=== PATIENT | female | born 1965 | race Caucasian/White ===

== ENCOUNTER → 2018-04-08 | Outpatient (CLI) | payer OTHER ==
[2018-04-08 08:14] VITALS: BP 137/97; PULSE 80; TEMP 97.7; BMI 38.7
--- NOTE | 2018-04-08 08:43 | P.HPOB ---
History of Present Illness H&P Date: 04/08/18 Chief Complaint: The patient is here for her routine gynecologic exam and mammogram. This is a 53-year-old with an LMP of 2015. The patient is without gynecologic complaints and denies any postmenopausal bleeding. Review of Systems The patient has gained 28 pounds over the last year. This was after losing 17 pounds the previous year. Most recently, she states she has lost about 12 pounds on Weight Watchers. She attributes the gain over the last year to extensive traveling and change in her eating habits during her travels. She denies respiratory, cardiac, or G.I. problems. Past Medical History Past Medical History: Diabetes Mellitus (Type II diabetes), Hyperlipidemia, Hypertension Additional Past Medical History / Comment(s): Vitamin D deficiency. 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 - Past Family History Brother(s) Family Medical History: Cancer (Testicular cancer) Father Family Medical History: Myocardial Infarction ([place]) Mother Family Medical History: Diabetes Mellitus Medications and Allergies Home Medications Medication Instructions Recorded Confirmed Type Ibuprofen [Motrin] 800 mg PO Q6H PRN 12/20/15 04/08/18 History Liraglutide [Victoza 2-Joshua] 1.2 mg SQ HS 12/20/15 04/08/18 History Moexipril/Hydrochlorothiazide 1 tab PO DAILY 12/20/15 04/08/18 History [Uniretic 15-25 mg Tablet] metFORMIN HCL [Glucophage Xr] 500 mg PO PC-SUPPER 12/20/15 04/08/18 History Cholecalciferol (Vitamin D3) 5,000 units PO DAILY 07/05/16 04/08/18 History [Vitamin D3] L.acidoph,Paracasei, B.lactis 1 cap PO DAILY 07/05/16 04/08/18 History [Probiotic] Magnesium 250 mg PO DAILY 07/05/16 04/08/18 History Turmeric Root Extract [Turmeric] 450 mg PO DAILY 07/05/16 04/08/18 History Ubidecarenone [Co Q-10] 400 mg PO DAILY 07/05/16 04/08/18 History Pravastatin Sodium [Pravachol] 40 mg PO DAILY 04/08/18 04/08/18 History Allergies Allergy/AdvReac Type Severity Reaction Status Date / Time steroids Allergy Unknown Rapid Uncoded 04/08/18 08:07 Heart Rate Exam Vital Signs Temp Pulse BP 04/08/18 08:11 97.7 F 80 137/97 Intake and Output 04/07/18 04/08/18 04/08/18 22:59 06:59 14:59 Other: Weight 118.841 kg Height 5'9", weight 262 pounds, BMI 38.7. This is a well-developed well-nourished heavyset white female who is alert and oriented times 3 in no acute distress. HEENT: Within normal limits. NECK: Supple without mass or thyromegaly. CHEST AND LUNGS: Clear to auscultation. HEART: Regular rate and rhythm. BREASTS: Are without mass or discharge. AXILLARY EXAM: Negative for adenopathy. BACK: Negative for CVA tenderness. ABDOMEN: Soft, obese, nontender, without palpable masses. PELVIC EXAM: Normal external genitalia. Cervix and vagina appear normal. There is no unusual discharge. There is no evidence of prolapse. The uterus is midposition, nongravid size and nontender. There are no palpable adnexal masses or tenderness. Bimanual examination is somewhat limited secondary to her size. RECTAL EXAM: rectovaginal exam is negative for mass or tenderness and is negative for occult blood. EXTREMITIES: Nontender. IMPRESSION: 1. 53-year-old menopausal female with normal gynecologic exam. PLAN: 1. Pap smear was performed. 2. Self breast awareness was discussed with the patient. 3. Screening mammogram will be done today. 4. Osteoporosis prevention was discussed. I have stressed the importance of adequate calcium, vitamin D and regular exercise. Recommended amounts of calcium and vitamin D were also discussed. 5. We have discussed her blood pressure elevation today. She states she will take her blood pressure at home on a regular basis and follow-up with Dr. Hsieh for blood pressure elevations. 6. I have recommended screening colonoscopy again. She states she will speak with Dr. Hsieh about this and do this through his office. 7. She will return in one year.
--- NOTE | 2018-04-12 10:36 | MM ---
Reason for exam: screening (asymptomatic). Last mammogram was performed 1 year and 3 months ago. History: Took hormonal contraceptives for 6 years beginning at age 19. MG 3D Screening Mammo W/Cad Bilateral CC and MLO view(s) were taken. XCCL view(s) were taken of the left breast. Prior study comparison: January 15, 2017, bilateral MG 3d diag mammo w/cad DELTA. January 19, 2016, right breast MG 3d work up w/cad RT. There are scattered fibroglandular densities. There are benign-appearing round bilateral breast calcifications, right more than left. There is chronic nodularity in the left breast. No discrete abnormality. ASSESSMENT: Benign, BI-RAD 2 RECOMMENDATION: Routine screening mammogram of both breasts in 1 year.
== END ==
LOC: WWCWWP 07:55
PROVIDERS: ATTEND Obstetrics & Gynecology
DX: Z12.31 Encounter for screening mammogram for malignant neoplasm of breast (principal)
CPT/HCPCS: 77063; 77067

== ENCOUNTER → 2023-04-02 | Outpatient (CLI) | payer BC ==
[2023-04-02 13:04] VITALS: BP 138/82; PULSE 81; RESP 16; TEMP 98.9
--- NOTE | 2023-04-02 13:22 | P.HPOB ---
History of Present Illness H&P Date: 04/02/23 Chief Complaint: The patient is here for her routine gynecologic exam and ma mmogram. This is a 58-year-old with an LMP of 2014. It has been about 4 years since her last pelvic exam here. She states she has been experiencing some vaginal dryness with sexual intercourse and she has started to use a lubricant which has been helpful. She is otherwise without gynecologic complaints and denies any postmenopausal bleeding. Review of Systems She has gained about 12 pounds over the past 4 years. She denies respiratory, cardiac, or GI problems. Past Medical History Past Medical History: Diabetes Mellitus, Hyperlipidemia, Hypertension Additional Past Medical History / Comment(s): Vitamin D deficiency. 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 Colonoscopy approximately 2020. Past Psychological History: No Psychological Hx Reported Smoking Status: Never smoker Past Alcohol Use History: Rare (10 drinks per year. 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 - Past Family History Brother(s) Family Medical History: Cancer Father Family Medical History: Myocardial Infarction ([place]) Mother Family Medical History: Dementia, Diabetes Mellitus Medications and Allergies Home Medications Medication Instructions Recorded Confirmed Type Moexipril/Hydrochlorothiazide 1 tab PO DAILY 12/20/15 04/02/23 History [Uniretic 15-25 mg Tablet] metFORMIN HCL [Glucophage Xr] 500 mg PO PC-SUPPER 12/20/15 04/02/23 History Cholecalciferol (Vitamin D3) 5,000 units PO DAILY 07/05/16 04/02/23 History [Vitamin D3] Magnesium 250 mg PO DAILY 07/05/16 04/02/23 History Turmeric Root Extract [Turmeric] 450 mg PO DAILY 07/05/16 04/02/23 History Ubidecarenone [Co Q-10] 400 mg PO DAILY 07/05/16 04/02/23 History Pravastatin Sodium [Pravachol] 40 mg PO DAILY 04/08/18 04/02/23 History Dulaglutide [Trulicity] 3 mg INJ WEEKLY 04/02/23 04/02/23 History Allergies Allergy/AdvReac Type Severity Reaction Status Date / Time ciprofloxacin [From Cipro] Allergy Hallucinati Unverified 04/02/23 12:44 ons steroids Allergy Unknown Rapid Uncoded 04/02/23 12:44 Heart Rate Exam Vital Signs Temp Pulse Resp BP Pulse Ox 04/02/23 12:48 98.9 F 81 16 138/82 99 Intake and Output 04/01/23 04/02/23 04/02/23 22:59 06:59 14:59 Other: Weight 124.284 kg Height 5 feet 9 inches, weight 274 pounds, BMI 40.5. This is a well-developed well-nourished heavyset white female who is alert and oriented times 3 in no acute distress. HEENT: Within normal limits. NECK: Supple without mass or thyromegaly. CHEST AND LUNGS: Clear to auscultation. HEART: Regular rate and rhythm. BREASTS: Are without mass or discharge. AXILLARY EXAM: Negative for adenopathy. BACK: Negative for CVA tenderness. ABDOMEN: Soft, obese, nontender, without palpable masses. PELVIC EXAM: Normal external genitalia with mild atrophy. Cervix and vagina appe ar normal with minimal atrophy. There is no unusual discharge. There is no evidence of prolapse. The uterus is midposition, nongravid size and nontender. There are no palpable adnexal masses or tenderness. RECTAL EXAM: Rectovaginal exam is negative for mass or tenderness and is negative for occult blood. EXTREMITIES: Nontender. IMPRESSION: 1. 58-year-old menopausal female with normal gynecologic exam. PLAN: 1. Pap smear cotest was performed. 2. Self breast awareness was discussed with the patient. We have also discussed symptoms associated with inflammatory breast cancer. 3. Screening mammogram will be done today. 4. Osteoporosis prevention was discussed. I have stressed the importance of adequate calcium, vitamin D and regular exercise. Recommended amounts of calcium and vitamin D were also discussed. 5. She was advised to return in one year for her annual well woman exam.
--- NOTE | 2023-04-03 17:56 | MM ---
Reason for Exam: Screening (asymptomatic). Last mammogram was performed 5 year(s) and 0 month(s) ago. Patient History: Menarche at age 15. First Full-Term at age 23. Postmenopausal. Hormonal Contraceptives, starting at age 19 for 6 years. Risk Values: Celeste 5 year model risk: 1.1%. NCI Lifetime model risk: 6.2%. Prior Study Comparison: 01/19/2016 Right Diagnostic Mammogram, [facility]. 01/15/2017 Bilateral Diagnostic Mammogram, [facility]. 04/08/2018 Bilateral Screening Mammogram, [facility]. Tissue Density: There are scattered fibroglandular densities. Findings: Analyzed By CAD. Heart appears symmetrical and stable. No significant interval change is evident. Scattered spherical calcifications are present bilaterally No suspicious groups of microcalcifications, spiculated or lobular masses, architectural distortion or other secondary signs of malignancy are mammographically apparent. Overall Assessment: Benign, BI-RAD 2 Management: Screening Mammogram of both breasts in 1 year. A negative mammogram report should not preclude additional follow up of suspicious palpable abnormalities. Patient should continue monthly self breast exam. A clinical breast exam by your physician is recommended on an annual basis and results should be correlated with mammographic findings. Electronically signed and approved by: Faisal Miller D.O. Radiologis
== END ==
LOC: WWCWWP 12:26
PROVIDERS: ATTEND Obstetrics & Gynecology
DX: Z12.31 Encounter for screening mammogram for malignant neoplasm of breast (principal); E11.9 Type 2 diabetes mellitus without complications; E78.5 Hyperlipidemia, unspecified; I10 Essential (primary) hypertension; Z79.84 Long term (current) use of oral hypoglycemic drugs; Z79.85 Long-term (current) use of injectable non-insulin antidiabetic drugs; Z88.1 Allergy status to other antibiotic agents; Z78.0 Asymptomatic menopausal state; Z88.8 Allergy status to other drugs, medicaments and biological substances; Z79.899 Other long term (current) drug therapy
CPT/HCPCS: 77063; 77067

== ENCOUNTER 2023-10-26 12:15 | Observation (INO) | payer BC ==
--- NOTE | 2023-10-26 12:57 | ED ---
General Adult HPI - General Chief complaint: Chest Pain Stated complaint: Chest pain Time Seen by Provider: 10/26/23 12:25 Source: patient, RN notes reviewed Mode of arrival: ambulatory Limitations: no limitations - History of Present Illness Initial comments: Patient is a 58-year-old female present to the emergency department with concerns with chest discomfort. Symptoms have been occurring over the past week or so. Discomfort is very mild at this time. Patient has a twinge followed by ache in her chest. Symptoms have been mild. Patient has noticed some worsening of symptoms with exertion. Patient did have a couple episodes of exertional dy spnea with steps. Patient recently lost her mother. Patient has been stressed and anxious. No nausea or diaphoresis. No history of similar symptoms previously. Patient does have hypertension history, diabetes and hypercholesterolemia - Related Data Home Medications Medication Instructions Recorded Confirmed Pravastatin Sodium [Pravachol] 40 mg PO DAILY 04/08/18 10/26/23 Dulaglutide [Trulicity] 3 mg SQ EVANGELISTA 04/02/23 10/26/23 Insulin Degludec [Tresiba 30 units SQ HS 10/26/23 10/26/23 Flextouch U-200 Pen] Moexipril HCl [Univasc] 15 mg PO DAILY 10/26/23 10/26/23 Pioglitazone [Actos] 15 mg PO DAILY 10/26/23 10/26/23 hydroCHLOROthiazide [Hydrodiuril] 25 mg PO DAILY 10/26/23 10/26/23 metFORMIN HCL ER [Glucophage XR] 1,000 mg PO W/SUPPER 10/26/23 10/26/23 Allergies Allergy/AdvReac Type Severity Reaction Status Date / Time ciprofloxacin [From Cipro] Allergy Hallucinati Verified 10/26/23 13:56 ons steroids Allergy Unknown Rapid Uncoded 10/26/23 12:24 Heart Rate Review of Systems ROS Statement: Those systems with pertinent positive or pertinent negative responses have been documented in the HPI. ROS Other: All systems not noted in ROS Statement are negative. Constitutional: Denies: fever Eyes: Denies: eye pain ENT: Denies: ear pain Respiratory: Reports: as per HPI. Denies: cough Cardiovascular: Reports: as per HPI, chest pain, dyspnea on exertion Endocrine: Denies: fatigue Gastrointestinal: Denies: abdominal pain Musculoskeletal: Denies: back pain Neurological: Reports: paresthesias Psychiatric: Reports: anxiety Past Medical History Past Medical History: Diabetes Mellitus, Hyperlipidemia, Hypertension Additional Past Medical History / Comment(s): Vitamin D deficiency. 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 Colonoscopy approximately 2020. Past Psychological History: No Psychological Hx Reported Smoking Status: Never smoker Past Alcohol Use History: Occasional Past Drug Use History: None Reported - Past Family History Brother(s) Family Medical History: Cancer Father Family Medical History: Myocardial Infarction ([place]) Mother Family Medical History: Dementia, Diabetes Mellitus General Exam Limitations: no limitations General appearance: alert, in no apparent distress Head exam: Present: atraumatic Eye exam: Present: normal appearance Neck exam: Present: normal inspection Respiratory exam: Present: normal lung sounds bilaterally Cardiovascular Exam: Present: regular rate, normal rhythm, normal heart sounds Expanded Peripheral pulses: 2+: Radial (R), Radial (L), Posterior Tibialis (R), Posterior Tibialis (L) GI/Abdominal exam: Present: soft. Absent: tenderness Extremities exam: Present: normal inspection. Absent: pedal edema, calf ten derness Neurological exam: Present: alert Psychiatric exam: Present: normal affect, normal mood Skin exam: Present: normal color Course Vital Signs 10/26/23 12:21 Temperature 98.3 F Pulse Rate 80 Respiratory 20 Rate Blood Pressure 146/76 O2 Sat by Pulse 98 Oximetry EKG Findings - EKG Results: EKG: interpreted by ERMD (LVH criteria), sinus rhythm, normal axis, normal ST/T Medical Decision Making - Medical Decision Making Was pt. sent in by a medical professional or institution (, PA, MAINTENANCE DEPARTMENT MANAGER, urgent care, hospital, or custodial...) When possible be specific @ -Patient was sent in by urgent care Did you speak to anyone other than the patient for history (EMS, parent, family, police, friend...)? What history was obtained from this source @ - is present and helps provide history of patient's symptoms Did you review nursing and triage notes (agree or disagree)? Why? @ -I reviewed and agree with nursing and triage notes Were old charts reviewed (outside hosp., previous admission, EMS record, old EKG, old radiological studies, urgent care reports/EKG's, custodial records)? Report findings @ -No old charts were reviewed Differential Diagnosis (chest pain, altered mental status, abdominal pain women, abdominal pain men, vaginal bleeding, weakness, fever, dyspnea, syncope, headache, dizziness, GI bleed, back pain, seizure, CVA, palpatations, mental health, musculoskeletal)? @ -Differential Chest Pain: Stable Angina, Unstable Angina, STEMI, NSTEMI Aortic Dissection, Pneumothorax, Musculoskeletal, Esophageal Spasm GERD, Cholecystitis, Pancreatitis, Zoster, this is not meant to be an all-inclusive list. EKG interpreted by me (3pts min.). @ -As above X-rays interpreted by me (1pt min.). @ -Chest x-ray does show some nodule CT interpreted by me (1pt min.). @ -None done U/S interpreted by me (1pt. min.). @ -None done What testing was considered but not performed or refused? (CT, X-rays, U/S, lab s)? Why? @ -None What meds were considered but not given or refused? Why? @ -None Did you discuss the management of the patient with other professionals (professionals i.e. , PA, MAINTENANCE DEPARTMENT MANAGER, lab, RT, psych nurse, social media assistant, agricultural commodities grader, teacher, contract officer, lining caser)? Give summary @ -[facility] Dr. Rhianna Cortez who will admit covering call Dr. Castro, admits for Dr. Hsieh. Was smoking cessation discussed for >3mins.? @ -No Was critical care preformed (if so, how long)? @ -No Were there social determinants of health that impacted care today? How? (Homelessness, low income, unemployed, alcoholism, drug addiction, transportation, low edu. Level, literacy, decrease access to med. care, senior living, rehab)? @ -No Was there de-escalation of care discussed even if they declined (Discuss DNR or withdrawal of care, Hospice)? DNR status @ -No What co-morbidities impacted this encounter? (DM, HTN, Smoking, COPD, CAD, Cancer, CVA, ARF, Chemo, Hep., AIDS, mental health diagnosis, sleep apnea, morbid obesity)? @ -Hypertension, diabetes, hypercholesterolemia Was patient admitted / discharged? Hospital course, mention meds given and route, prescriptions, significant lab abnormalities, going to OR and other pertinent info. @ -Patient is a 58-year-old female present to the emergency department chest di [place], ongoing for over a week. Patient has some exertional dyspnea and several risk factors. Patient will be admitted with cardiac consult. Admission orders written. Undiagnosed new problem with uncertain prognosis? @ -No Drug Therapy requiring intensive monitoring for toxicity (Heparin, Nitro, Insulin, Cardizem)? @ -No Were any procedures done? @ -No Diagnosis/symptom? @ -Chest pain Acute, or Chronic, or Acute on Chronic? @ -Acute Uncomplicated (without systemic symptoms) or Complicated (systemic symptoms)? @ -Default Side effects of treatment? @ -No Exacerbation, Progression, or Severe Exacerbation? @ -No Poses a threat to life or bodily function? How? (Chest pain, [place], [place], pneumonia, PE, COPD, DKA, ARF, appy, cholecystitis, CVA, Diverticulitis, Homicidal, Suicidal, threat to staff... and all critical care pts) @ -Threat to cardiac function - Lab Data Result diagrams: 10/26/23 13:19 10/26/23 13:19 Lab Results 10/26/23 10/26/23 10/26/23 Range/Units 13:19 13:19 13:19 WBC 9.9 (3.8-10.6) k/uL RBC 4.43 (3.80-5.40) m/uL Hgb 13.3 (11.4-16.0) gm/dL Hct 39.6 (34.0-46.0) % MCV 89.5 (80.0-100.0) fL MCH 30.0 (25.0-35.0) pg MCHC 33.6 (31.0-37.0) g/dL RDW 12.9 (11.5-15.5) % Plt Count 349 (150-450) k/uL MPV 7.4 Neutrophils % 71 % Lymphocytes % 21 % Monocytes % 6 % Eosinophils % 2 % Basophils % 0 % Neutrophils # 7.0 (1.3-7.7) k/uL Lymphocytes # 2.0 (1.0-4.8) k/uL Monocytes # 0.6 (0-1.0) k/uL Eosinophils # 0.2 (0-0.7) k/uL Basophils # 0.0 (0-0.2) k/uL PT 10.3 (10.0-12.5) sec INR 0.9 (<1.2) APTT 22.9 (22.0-30.0) sec D-Dimer 0.32 (<0.60) mg/L FEU Sodium 139 (137-145) mmol/L Potassium 3.9 (3.5-5.1) mmol/L Chloride 103 (98-107) mmol/L Carbon Dioxide 25 (22-30) mmol/L Anion Gap 11 mmol/L BUN 19 H (7-17) mg/dL Creatinine 0.51 L (0.52-1.04) mg/dL Est GFR (CKD-EPI)AfAm >90 (>60 ml/min/1.73 sqM) Est GFR (CKD-EPI)NonAf >90 (>60 ml/min/1.73 sqM) Glucose 184 H (74-99) mg/dL Calcium 10.2 (8.4-10.2) mg/dL Magnesium 1.2 L (1.6-2.3) mg/dL Total Bilirubin 0.5 (0.2-1.3) mg/dL AST 26 (14-36) U/L ALT 26 (4-34) U/L Alkaline Phosphatase 65 (38-126) U/L Troponin I (0.000-0.034) ng/mL Total Protein 7.1 (6.3-8.2) g/dL Albumin 4.4 (3.5-5.0) g/dL 10/26/23 Range/Units 13:19 WBC (3.8-10.6) k/uL RBC (3.80-5.40) m/uL Hgb (11.4-16.0) gm/dL Hct (34.0-46.0) % MCV (80.0-100.0) fL MCH (25.0-35.0) pg MCHC (31.0-37.0) g/dL RDW (11.5-15.5) % Plt Count (150-450) k/uL MPV Neutrophils % % Lymphocytes % % Monocytes % % Eosinophils % % Basophils % % Neutrophils # (1.3-7.7) k/uL Lymphocytes # (1.0-4.8) k/uL Monocytes # (0-1.0) k/uL Eosinophils # (0-0.7) k/uL Basophils # (0-0.2) k/uL PT (10.0-12.5) sec INR (<1.2) APTT (22.0-30.0) sec D-Dimer (<0.60) mg/L FEU Sodium (137-145) mmol/L Potassium (3.5-5.1) mmol/L Chloride (98-107) mmol/L Carbon Dioxide (22-30) mmol/L Anion Gap mmol/L BUN (7-17) mg/dL Creatinine (0.52-1.04) mg/dL Est GFR (CKD-EPI)AfAm (>60 ml/min/1.73 sqM) Est GFR (CKD-EPI)NonAf (>60 ml/min/1.73 sqM) Glucose (74-99) mg/dL Calcium (8.4-10.2) mg/dL Magnesium (1.6-2.3) mg/dL Total Bilirubin (0.2-1.3) mg/dL AST (14-36) U/L ALT (4-34) U/L Alkaline Phosphatase (38-126) U/L Troponin I <0.012 (0.000-0.034) ng/mL Total Protein (6.3-8.2) g/dL Albumin (3.5-5.0) g/dL Disposition Clinical Impression: Chest pain Disposition: ADMITTED IP TO THIS [facility] Is patient prescribed a controlled substance at d/c from ED?: No Time of Disposition: 14:28
[2023-10-26] MEDS: ASPIRIN 81 MG PO STA (13:05)
[2023-10-26] MEDS: NITROGLYCERIN OINT 1 INCH/GM PACKET TOPICAL STA (13:06)
[2023-10-26 13:28] LABS: Basophils % (A) 0 %; Eosinophils # (A) 0.2 k/uL (0-0.7); Eosinophils % (A) 2 %; HCT 39.6 % (34.0-46.0); HGB 13.3 gm/dL (11.4-16.0); Lymphocytes % (A) 21 %; MCHC 33.6 g/dL (31.0-37.0); MCV 89.5 fL (80.0-100.0); Mean Platelet Volume 7.4; Monocytes # (A) 0.6 k/uL (0-1.0); Monocytes % (A) 6 %; Neutrophils % (A) 71 %; Platelet Count 349 k/uL (150-450); RBC 4.43 m/uL (3.80-5.40); RDW 12.9 % (11.5-15.5); WBC 9.9 k/uL (3.8-10.6)
--- NOTE | 2023-10-26 13:36 | XR ---
EXAMINATION TYPE: XR chest 2V DATE OF EXAM: 10/26/2023 COMPARISON: None HISTORY: 58-year-old female with chest pain TECHNIQUE: PA and lateral views FINDINGS: Low lung volumes and crowded vascular markings. Right suprahilar and left hilar dominant. Possible no dule right upper lobe measuring 9 mm. Interstitial density. No bruce consolidation or pleural effusio n seen. IMPRESSION: 1. Interstitial prominence could reflect bronchitis or asthma. There are hypoventilatory changes pres ent. 2. Possible 9 mm right upper lobe nodule. Additional asymmetric right suprahilar and left hilar promi nence. Nonemergent follow-up CT chest to exclude underlying adenopathy or suspicious nodules.
[2023-10-26 13:39] LABS: ALT 26 U/L (4-34); AST 26 U/L (14-36); African American GFR (CKD) >90 (>60 ml/min/1.73 sqM); Albumin 4.4 g/dL (3.5-5.0); Alkaline Phosphatase 65 U/L (38-126); Anion Gap 11 mmol/L; Blood Urea Nitrogen 19 mg/dL (7-17); Calcium 10.2 mg/dL (8.4-10.2); Carbon Dioxide 25 mmol/L (22-30); Chloride 103 mmol/L (98-107); Glucose 184 mg/dL (74-99); Magnesium 1.2 mg/dL (1.6-2.3); Non-African American GFR(CKD) >90 (>60 ml/min/1.73 sqM); Potassium 3.9 mmol/L (3.5-5.1); Sodium 139 mmol/L (137-145); Total Bilirubin 0.5 mg/dL (0.2-1.3); Total Protein 7.1 g/dL (6.3-8.2)
[2023-10-26 13:41] LABS: INR 0.9 (<1.2); Partial Thromboplastin Time 22.9 sec (22.0-30.0); Prothrombin Time 10.3 sec (10.0-12.5)
[2023-10-26] MEDS: MAGNESIUM SULFATE-D5W PMX 1 GM in DEXTROSE/WATER 1 100ML.BAG IVPB SCH (14:26)
[2023-10-26] MEDS ORDERED: NITROGLYCERIN SL TABS 0.4 MG TAB SUBLINGUAL PRN (14:28)
[2023-10-26] MEDS: NITROGLYCERIN OINT 1 INCH/GM PACKET TOPICAL SCH (17:17)
[2023-10-26 17:24] LABS: Glucose,Whole Blood 155 mg/dL (70-110)
[2023-10-26] MEDS: metFORMIN 500 MG TAB PO SCH (17:39)
[2023-10-26] MEDS ORDERED: ACETAMINOPHEN TAB 325 MG TAB PO PRN (18:10)
[2023-10-26] MEDS ORDERED: DEXTROSE 50% SYRINGE 50 ML IVP PRN ×2 (18:14)
--- NOTE | 2023-10-26 18:20 | P.HPIM ---
History of Present Illness H&P Date: 10/26/23 History of present illness: 58-year-old female with past medical history significant for hypertension, hyperlipidemia, diabetes mellitus who presented to ER with a complaint of chest pain. Patient stated that patient was having chest pain on and off over the last week. Mild in intensity, worse with exertion, also noted to have exertional dyspnea. Patient stated that she gets some tingling in the bilateral upper arms after chest pain is resolved. Patient is under a lot of stress and anxiety due to recent loss of her mother. Patient denied any nausea or diaphoresis. Patient is non-smoker, reported family history of heart disease in father in 40s. Patient denies any fever, chills, sore throat, productive cough, palpitations, syncope, vomiting diarrhea constipation abdominal pain dysuria urgency frequency weakness of extremities. REVIEW OF SYSTEMS: CONSTITUTIONAL: No fever, no malaise, no fatigue. HEENT: No recent visual problems or hearing problems. Denied any sore throat. CARDIOVASCULAR: No orthopnea, PND, no palpitations, no syncope. PULMONARY: No shortness of breath, no cough, no hemoptysis. GASTROINTESTINAL: No diarrhea, no nausea, no vomiting, no abdominal pain. NEUROLOGICAL: No headaches, no weakness, no numbness. HEMATOLOGICAL: Denies any bleeding or petechiae. GENITOURINARY: Denies any burning micturition, frequency, or urgency. MUSCULOSKELETAL/RHEUMATOLOGICAL: Denies any joint pain, swelling, or any muscle pain. ENDOCRINE: Denies any polyuria or polydipsia. The rest of the 14-point review of systems is negative. PHYSICAL EXAMINATION: GENERAL: A&O x3, NAD HEENT: EOMI, Sclerae anicteric, Moist Mucous membranes Neck: Supple, Non tender, No JVD PULMONARY: Equal breath souds B/L, No wheezing, No crackles. CARDIOVASCULAR: S1, S2 present. No murmurs, rubs, or gallops. ABDOMEN: Soft, nontender, nondistended, normoactive bowel sounds. No guarding or rebound tenderness. MUSCULOSKELETAL: No edema, No cyanosis. No clubbing. Normal ROM. Intact josé pheral pulses. EXTREMITIES: No cyanosis, clubbing, or pedal edema. Skin: Warm. No Rash Assessment and plan: Chest pain: Hypertension: Hyperlipidemia Presented with chest pain Family history of heart attack in father in 40s. Monitor with serial troponin and EKG. Troponin negative X2. Aspirin,Statin Nitroglycerin. Cardiology consult. Diabetes mellitus: Accu-Cheks, diabetic diet Resume home meds Sliding-scale insulin DVT prophylaxis Subcutaneous Lovenox Monitor vital signs and labs Continue telemetry monitoring Labs and medication were reviewed. Continue same treatment. Resume home medication. Further recommendations as per clinical course of the patient Dictation was produced using [employer] dictation software. please excuse any grammatical, word or spelling errors. Past Medical History Past Medical History: Diabetes Mellitus, Hyperlipidemia, Hypertension Additional Past Medical History / Comment(s): Vitamin D deficiency. 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 Colonoscopy approximately 2020. Past Psychological History: No Psychological Hx Reported Smoking Status: Never smoker Past Alcohol Use History: Occasional Past Drug Use History: None Reported - Past Family History Brother(s) Family Medical History: Cancer Father Family Medical History: Myocardial Infarction ([place]) Mother Family Medical History: Dementia, Diabetes Mellitus Medications and Allergies Home Medications Medication Instructions Recorded Confirmed Type Pravastatin Sodium [Pravachol] 40 mg PO DAILY 04/08/18 10/26/23 History Dulaglutide [Trulicity] 3 mg SQ EVANGELISTA 04/02/23 10/26/23 History Insulin Degludec [Tresiba 30 units SQ HS 10/26/23 10/26/23 History Flextouch U-200 Pen] Moexipril HCl [Univasc] 15 mg PO DAILY 10/26/23 10/26/23 History Pioglitazone [Actos] 15 mg PO DAILY 10/26/23 10/26/23 History hydroCHLOROthiazide [Hydrodiuril] 25 mg PO DAILY 10/26/23 10/26/23 History metFORMIN HCL ER [Glucophage XR] 1,000 mg PO W/SUPPER 10/26/23 10/26/23 History Allergies Allergy/AdvReac Type Severity Reaction Status Date / Time ciprofloxacin [From Cipro] Allergy Hallucinati Verified 10/26/23 13:56 ons steroids Allergy Unknown Rapid Uncoded 10/26/23 12:24 Heart Rate Physical Exam Vitals: Vital Signs Temp Pulse Pulse Resp BP BP Pulse Ox 10/26/23 16:20 98.0 F 78 18 128/73 97 10/26/23 15:32 77 16 143/98 98 10/26/23 12:21 98.3 F 80 20 146/76 98 Intake and Output 10/26/23 10/26/23 10/26/23 06:59 14:59 22:59 Other: Weight 124.284 kg 124.284 kg Results CBC & Chem 7: 10/26/23 13:19 10/26/23 13:19 Labs: Abnormal Lab Results - Last 24 Hours (Table) 10/26/23 10/26/23 Range/Units 13:19 17:23 BUN 19 H (7-17) mg/dL Creatinine 0.51 L (0.52-1.04) mg/dL Glucose 184 H (74-99) mg/dL POC Glucose (mg/dL) 155 H (70-110) mg/dL Magnesium 1.2 L (1.6-2.3) mg/dL Thrombosis Risk Factor Assmnt - Choose All That Apply Any of the Below Risk Factors Present?: Yes Each Factor Represents 1 point: Age 41-60 years, Obesity (BMI >25) Other Risk Factors: No Other congenital or acquired thrombophilia - If yes, enter type in comment: No Thrombosis Risk Factor Assessment Total Risk Factor Score: 2 Thrombosis Risk Factor Assessment Level: Low Risk
[2023-10-26 20:14] LABS: Glucose,Whole Blood 205 mg/dL (70-110)
[2023-10-26] MEDS: MAGNESIUM OXIDE 400 MG TAB PO SCH (22:15)
[2023-10-26] MEDS: INSULIN DETEMIR (LEVEMIR) 100 UNIT/ML SYR SQ SCH (22:16)
[2023-10-26] MEDS: INSULIN ASPART (NovoLOG) 100 UNIT/ML VIAL SQ SCH (22:16)
[2023-10-27 06:32] LABS: Glucose,Whole Blood 169 mg/dL (70-110)
[2023-10-27] MEDS ORDERED: ASPIRIN 325 MG TAB PO SCH (09:00)
[2023-10-27 09:43] LABS: Chol/HDL Ratio 4.07 Ratio; LDL Cholesterol,Calculated 77.1 mg/dL (0.0-131.0)
[2023-10-27 12:06] LABS: Glucose,Whole Blood 149 mg/dL (70-110)
[2023-10-27] MEDS: ENOXAPARIN 40 MG/0.4 ML SYRINGE SQ SCH (12:31)
[2023-10-27] MEDS: lisinopriL 20 MG TAB PO SCH (12:32)
[2023-10-27] MEDS: DAPAGLIFLOZIN PROPANEDIOL 10 MG TABLET PO SCH (12:50)
[2023-10-27] MEDS: LOSARTAN 25 MG TAB PO SCH (12:50)
[2023-10-27] MEDS: ASPIRIN 81 MG PO SCH (12:50)
--- NOTE | 2023-10-27 13:38 | P.CRDCN ---
History of Present Illness Consult date: 10/27/23 History of present illness: HISTORY OF PRESENTING ILLNESS 58-year-old with PMH of HTN, dyslipidemia, diabetes presented with substernal chest pain. She describes it on and off for last 1 week, center chest radiating to left arm with some pins and needle sensation with some tingling sensation. She denies any associated diaphoresis or nausea. Troponin x 3 is negative, blood pressure is controlled, Social history: Denies any smoking, recreational drug use marijuana use or alcohol use Family history: Reports family history of diabetes and hypertension in family an d coronary artery disease in father at older ages REVIEW OF SYSTEMS 14 point review of system is negative except what is mentioned above in HPI. PHYSICAL EXAMINATION Vital signs reviewed. Head: Normocephalic. Eyes: Sclerae nonicteric. Neck: Brisk carotid upstroke, no jugular venous distention. Lungs: Clear to auscultation. Heart: Regular rate and rhythm, S1-S2, no S3, no murmur or rub. Abdomen: Soft nontender, positive bowel sounds. Extremities: No edema, intact distal pulses. Neuro: Alert, oritented, no focal deficits. Detailed neuro exam was not performed. ASSESSMENT Atypical chest pain Essential hypertension Type 2 diabetes Morbid obesity PLAN Obtain resting echocardiogram Plan for treadmill echo stress test. If cannot walk on treadmill, converted to dobutamine echo stress test Continue statin Outpatient sleep apnea evaluation Obtain NT-proBNP, lipid panel, HbA1c, TSH level Continue current medical regimen. He is on lisinopril HCTZ at home for blood pressure control. Will continue. Would recommend addition of SGLT2 primary team agrees. Rodney Lyons MD, FACC, RPVI Thank you for allowing [facility] to participate in this patient's care. Feel free to reach out in case of any followup questions. Past Medical History Past Medical History: Diabetes Mellitus, Hyperlipidemia, Hypertension Additional Past Medical History / Comment(s): Vitamin D deficiency. 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 Colonoscopy approximately 2020. Past Psychological History: No Psychological Hx Reported Smoking Status: Never smoker Past Alcohol Use History: Occasional Past Drug Use History: None Reported - Past Family History Brother(s) Family Medical History: Cancer Father Family Medical History: Myocardial Infarction ([place]) Mother Family Medical History: Dementia, Diabetes Mellitus Medications and Allergies Home Medications Medication Instructions Recorded Confirmed Type Pravastatin Sodium [Pravachol] 40 mg PO DAILY 04/08/18 10/26/23 History Dulaglutide [Trulicity] 3 mg SQ EVANGELISTA 04/02/23 10/26/23 History Insulin Degludec [Tresiba 30 units SQ HS 10/26/23 10/26/23 History Flextouch U-200 Pen] Moexipril HCl [Univasc] 15 mg PO DAILY 10/26/23 10/26/23 History Pioglitazone [Actos] 15 mg PO DAILY 10/26/23 10/26/23 History hydroCHLOROthiazide [Hydrodiuril] 25 mg PO DAILY 10/26/23 10/26/23 History metFORMIN HCL ER [Glucophage XR] 1,000 mg PO W/SUPPER 10/26/23 10/26/23 History Allergies Allergy/AdvReac Type Severity Reaction Status Date / Time ciprofloxacin [From Cipro] Allergy Hallucinati Verified 10/26/23 13:56 ons steroids Allergy Unknown Rapid Uncoded 10/26/23 12:24 Heart Rate Physical Exam Vitals: Vital Signs Temp Pulse Pulse Resp BP BP Pulse Ox 10/27/23 08:00 75 16 10/27/23 07:00 98.5 F 75 16 125/75 95 10/27/23 02:18 83 16 10/27/23 01:59 98.6 F 79 16 149/76 94 L 10/26/23 22:16 83 16 10/26/23 20:12 98.2 F 83 16 132/79 97 10/26/23 18:21 78 18 10/26/23 16:20 98.0 F 78 18 128/73 97 10/26/23 15:32 77 16 143/98 98 Intake and Output 10/26/23 10/27/23 10/27/23 22:59 06:59 14:59 Intake Total 118 Balance 118 Intake: Oral 118 Other: Voiding Method Toilet Toilet Toilet # Voids 1 Weight 124.284 kg Results 10/26/23 13:19 10/26/23 13:19 Cardiac Enzymes 10/26/23 10/26/23 10/26/23 Range/Units 13:19 13:19 16:18 AST 26 (14-36) U/L Troponin I <0.012 <0.012 (0.000-0.034) ng/mL 10/26/23 Range/Units 19:43 AST (14-36) U/L Troponin I <0.012 (0.000-0.034) ng/mL Coagulation 10/26/23 Range/Units 13:19 PT 10.3 (10.0-12.5) sec APTT 22.9 (22.0-30.0) sec Lipids 10/26/23 Range/Units 13:19 Triglycerides 263.00 H (0.00-149.00) mg/dL Cholesterol 172.00 (0.00-200.00) mg/dL HDL Cholesterol 42.30 (40.00-60.00) mg/dL Cholesterol/HDL Ratio 4.07 Ratio Comprehensive Metabolic Panel 10/26/23 Range/Units 13:19 Sodium 139 (137-145) mmol/L Potassium 3.9 (3.5-5.1) mmol/L Chloride 103 (98-107) mmol/L Carbon Dioxide 25 (22-30) mmol/L BUN 19 H (7-17) mg/dL Creatinine 0.51 L (0.52-1.04) mg/dL Glucose 184 H (74-99) mg/dL Calcium 10.2 (8.4-10.2) mg/dL AST 26 (14-36) U/L ALT 26 (4-34) U/L Alkaline Phosphatase 65 (38-126) U/L Total Protein 7.1 (6.3-8.2) g/dL Albumin 4.4 (3.5-5.0) g/dL Current Medications Generic Name Dose Route Start Last Admin Trade Name Freq PRN Reason Stop Dose Admin Acetaminophen 650 mg 10/26/23 18:10 Acetaminophen Tab 325 Mg Tab PO Q6HR PRN Mild Pain or Fever > 100.5 Aspirin 81 mg 10/27/23 12:30 10/27/23 12:50 Aspirin 81 Mg PO 81 mg DAILY PHILLIP Administration Dapagliflozin 10 mg 10/27/23 12:30 10/27/23 12:50 Dapagliflozin Propanediol 10 Mg Tablet PO 10 mg DAILY PHILLIP Administration Dextrose/Water 25 ml 10/26/23 18:14 Dextrose 50% Syringe 50 Ml IVP PER PROTOCOL PRN Hypoglycemia Protocol Dextrose/Water 50 ml 10/26/23 18:14 Dextrose 50% Syringe 50 Ml IVP PER PROTOCOL PRN Hypoglycemia Protocol Enoxaparin Sodium 40 mg 10/27/23 09:00 10/27/23 12:31 Enoxaparin 40 Mg/0.4 Ml Syringe SQ Not Given DAILY PHILLIP Hydrochlorothiazide 25 mg 10/27/23 09:00 Hydrochlorothiazide 25 Mg Tab PO DAILY [facility] Insulin Aspart 0 unit 10/26/23 21:00 10/27/23 12:35 Insulin Aspart (Novolog) 100 Unit/Ml Vial SQ Not Given ACHS [facility] Protocol Insulin Detemir 30 unit 10/26/23 21:00 10/26/23 22:16 Insulin Detemir (Levemir) 100 Unit/Ml Syr SQ 30 unit HS [facility] Administration Lisinopril 40 mg 10/27/23 09:00 10/27/23 12:32 Lisinopril 20 Mg Tab PO 40 mg DAILY PHILLIP Administration Losartan Potassium 25 mg 10/27/23 12:30 10/27/23 12:50 Losartan 25 Mg Tab PO 25 mg DAILY [facility]ILLIP Administration Magnesium Oxide 400 mg 10/26/23 21:00 10/27/23 12:32 Magnesium Oxide 400 Mg Tab PO 400 mg BID PHILLIP Administration Metformin HCl 1,000 mg 10/26/23 17:30 10/26/23 17:39 Metformin 500 Mg Tab PO 1,000 mg W/SUPPER PHILLIP Administration Nitroglycerin 0.4 mg 10/26/23 14:28 Nitroglycerin Sl Tabs 0.4 Mg Tab SUBLINGUAL Q5M PRN Chest Pain Nitroglycerin 0.5 inch 10/26/23 18:00 10/27/23 06:54 Nitroglycerin Oint 1 Inch/Gm Packet TOPICAL 0.5 inch Q6HR [facility] Administration Non-Formulary Medication 3 mg 10/27/23 14:33 Dulaglutide [Trulicity] SQ EVANGELISTA [facility] Pravastatin Sodium 40 mg 10/27/23 09:00 Pravastatin Sodium 40 Mg Tab PO DAILY [facility] Intake and Output 10/26/23 10/27/23 10/27/23 22:59 06:59 14:59 Intake Total 118 Balance 118 Intake: Oral 118 Other: Voiding Method Toilet Toilet Toilet # Voids 1 Weight 124.284 kg 10/26/23 13:19 10/26/23 13:19
[2023-10-27] MEDS: NON FORMULARY DRUG (Dulaglutide [Trulicity] 3 MG/0.5 ML Each) SQ SCH (14:39)
[2023-10-27] MEDS: PRAVASTATIN SODIUM 40 MG TAB PO SCH (14:40)
--- NOTE | 2023-10-27 15:49 | P.PN ---
Subjective Progress Note Date: 10/27/23 Interval History: 58-year-old female with past medical history significant for hypertension, hyperlipidemia, diabetes mellitus who presented to ER with a complaint of chest pain. Patient stated that patient was having chest pain on and off over the last week. Mild in intensity, worse with exertion, also noted to have exertional dyspnea. Patient stated that she gets some tingling in the bilateral upper arms after chest pain is resolved. Patient is under a lot of stress and anxiety due to recent loss of her mother. Patient denied any nausea or diaphoresis. Patient is non-smoker, reported family history of heart disease in father in 40s. Patient denies any fever, chills, sore throat, productive cough, palpitations, syncope, vomiting diarrhea constipation abdominal pain dysuria urgency frequency weakness of extremities. 10/27/23 Patient continues complain of mild chest pain, troponin remain negative. Patient continue aspirin statin, losartan hydrochlorothiazide, Nitropaste. Cardiology evaluated patient, recommended echocardiogram, plan for treadmill echo stress test, recommended outpatient sleep study, SGLT2 inhibitor. Assessment and plan: Chest pain: Hypertension: Hyperlipidemia Presented with chest pain Family history of heart attack in father in 40s. Monitor with serial troponin and EKG. Troponin negative X3 Aspirin,Statin Continue losartan, hydrochlorothiazide Nitroglycerin. Echocardiogram Cardiology consuled--recommended echocardiogram, plan for treadmill echo stress test, outpatient sleep study, SGLT2 inhibitor. Diabetes mellitus: Accu-Cheks, diabetic diet Resume home meds Sliding-scale insulin, Levemir SGLT2i DVT prophylaxis Subcutaneous Lovenox PHYSICAL EXAMINATION: GENERAL: The patient is A&O x3, NAD HEENT: EOMI, Sclerae anicteric, Moist Mucous membranes Neck: Supple, Non tender, No JVD CARDIOVASCULAR: S1, S2 present. No murmurs, rubs, or gallops. PULMONARY: Equal breath souds B/L, No wheezing, No crackles. ABDOMEN: Soft, nontender, nondistended, normoactive bowel sounds. No guarding or rebound tenderness. MUSCULOSKELETAL: No edema, No cyanosis. No clubbing. Normal ROM. Intact peripheral pulses. Skin; Warm. No rash. REVIEW OF SYSTEMS: CONSTITUTIONAL: No fever or chills. CARDIOVASCULAR: No chest pain, palpitations or syncope. PULMONARY: No shortness of breath, no cough, sore throat. GASTROINTESTINAL: No nausea, vomiting, diarrhea, abdominal pain. : No Dysuria, urgency, frequency. Extremities: No edema. NEUROLOGICAL: No headaches, no weakness, or numbness Dictation was produced using [employer] dictation software. please excuse any g rammatical, word or spelling errors. Objective - Vital Signs Vital signs: Vital Signs Temp 98.5 F 10/27/23 15:00 Pulse 82 10/27/23 15:00 Resp 16 10/27/23 15:00 BP 111/98 10/27/23 15:00 Pulse Ox 97 10/27/23 15:00 FiO2 Intake & Output 10/26/23 10/27/23 10/27/23 18:59 06:59 18:59 Intake Total 118 118 Balance 118 118 Weight 124.284 kg Intake: Oral 118 118 Other: Voiding Method Toilet Toilet Toilet # Voids 1 3 - Labs CBC & Chem 7: 10/26/23 13:19 10/26/23 13:19 Labs: Abnormal Lab Results - Last 24 Hours (Table) 10/26/23 10/26/23 10/26/23 Range/Units 13:19 17:23 20:13 POC Glucose (mg/dL) 155 H 205 H (70-110) mg/dL Triglycerides 263.00 H (0.00-149.00) mg/dL VLDL Cholesterol, Calc 52.60 H (5.00-40.00) mg/dL 10/27/23 10/27/23 Range/Units 06:31 12:05 POC Glucose (mg/dL) 169 H 149 H (70-110) mg/dL Triglycerides (0.00-149.00) mg/dL VLDL Cholesterol, Calc (5.00-40.00) mg/dL
[2023-10-27] MEDS: PIOGLITAZONE 15 MG TAB PO SCH (16:24)
[2023-10-27] MEDS: hydroCHLOROthiazide 25 MG TAB PO SCH (16:24)
[2023-10-27 17:31] LABS: Glucose,Whole Blood 129 mg/dL (70-110)
[2023-10-27 20:20] LABS: Glucose,Whole Blood 156 mg/dL (70-110)
[2023-10-27 21:25] VITALS: PULSE 83
[2023-10-28] MEDS ORDERED: hydroCHLOROthiazide 25 MG TAB ONE (00:01)
[2023-10-28 05:33] LABS: Glucose,Whole Blood 179 mg/dL (70-110)
[2023-10-28 07:20] LABS: NT-Pro-B-Type Natriuretic Pept <36 pg/mL (0-125)
[2023-10-28 07:28] VITALS: BP 129/78; RESP 16; TEMP 99.9
[2023-10-28] MEDS ORDERED: ASPIRIN 81 MG ONE (10:02)
[2023-10-28] MEDS ORDERED: MAGNESIUM OXIDE 400 MG TAB ONE (10:02)
[2023-10-28] MEDS ORDERED: LOSARTAN 25 MG TAB ONE (10:02)
[2023-10-28] MEDS ORDERED: ENOXAPARIN 40 MG/0.4 ML SYRINGE SQ ONE ×2 (10:02→10:12)
[2023-10-28] MEDS ORDERED: DAPAGLIFLOZIN PROPANEDIOL 10 MG TABLET ONE (10:03)
[2023-10-28 12:46] LABS: Glucose,Whole Blood 144 mg/dL (70-110)
== END 2023-10-28 14:00 | disposition home or self-care (01) ==
LOC: EC 12:15 → 6NMEDSUR 14:28
PROVIDERS: ADMIT Internal Medicine; ATTEND Internal Medicine
DX: R07.89 Other chest pain (principal); R07.2 Precordial pain; M79.602 Pain in left arm; R06.09 Other forms of dyspnea; R20.2 Paresthesia of skin; E11.9 Type 2 diabetes mellitus without complications; I10 Essential (primary) hypertension; E78.00 Pure hypercholesterolemia, unspecified; F06.4 Anxiety disorder due to known physiological condition; Z73.3 Stress, not elsewhere classified; Z63.4 Disappearance and death of family member; E66.01 Morbid (severe) obesity due to excess calories; Z68.41 Body mass index [BMI] 40.0-44.9, adult; Z79.84 Long term (current) use of oral hypoglycemic drugs; Z79.4 Long term (current) use of insulin; Z79.85 Long-term (current) use of injectable non-insulin antidiabetic drugs; Z79.899 Other long term (current) drug therapy; Z88.1 Allergy status to other antibiotic agents; Z88.8 Allergy status to other drugs, medicaments and biological substances; Z82.49 Family history of ischemic heart disease and other diseases of the circulatory system
CPT/HCPCS: 36415; 93005; 85379; 83880; 80061; 80053; 84443; 83735; 84484; 85025; 85610; 85730; 83036; 71046; J3475; 93306; 93351; 96365; 96366; 99285